=== PATIENT | female | born 1985 | race Caucasian/White ===

== ENCOUNTER 2020-06-01 11:54 | Outpatient (REF) | payer OTHER, SELFPAY ==
[2020-06-01 13:08] LABS: Hematocrit 33.7 % (37-47); Hemoglobin 10.5 g/dl (12.0-16.0); Mean Corpuscular HGB Conc 31.2 g/dl (31.0-35.0); Mean Corpuscular Hemoglobin 28.2 pg (27.0-33.0); Mean Corpuscular Volume 90.3 fL (80-98); Platelet Count 212 X10*3/uL (160-400); Red Blood Count 3.73 X10*6/uL (4.20-5.50); White Blood Count 6.6 X10*3/uL (4.8-10.8)
[2020-06-01 13:52] LABS: Alanine Aminotransferase 13 U/L (0-31); Albumin Level 4.4 g/dL (3.5-5.0); Alkaline Phosphatase 75 U/L (39-117); Anion Gap 12 (12-20); Aspartate Amino Transferase 22 U/L (5-31); Bilirubin Direct 0.2 mg/dL (0.0-0.5); Bilirubin Total 0.4 mg/dL (0.0-1.0); Blood Urea Nitrogen 13 mg/dL (9-16); Calcium 9.1 mg/dL (8.4-10.2); Carbon Dioxide 27 mmol/L (22-29); Chloride 106 mmol/L (96-108); Cholesterol 156 mg/dL; Estimated Glomerular Filt Rate > 60; Glucose Random 83 mg/dL (60-115); HDL Cholesterol 105 mg/dL; LDL Cholesterol Calculated 42 mg/dl; Potassium 4.9 mmol/l (3.3-5.1); Sodium 140 mmol/L (135-145); Total Protein 7.2 g/dL (6.5-8.0); Triglycerides 48 mg/dL
[2020-06-01 14:03] LABS: TSH reflex Free T4 1.07 mIU/mL (0.32-4.0)
== END 2020-06-01 11:55 | disposition home or self-care (01) ==
LOC: HO.WFDLDS 11:54
PROVIDERS: Visit Provider Hospitalist
DX: Z00.00 Encounter for general adult medical examination without abnormal findings (principal); Z13.220 Encounter for screening for lipoid disorders; Z13.29 Encounter for screening for other suspected endocrine disorder
CPT/HCPCS: 36415; 80048; 80061; 80076; 84443; 85027